=== PATIENT | male | born 1980 | race Hispanic/Latino ===

== ENCOUNTER 2018-03-18 09:37 | Emergency (ER) | payer BC ==
[2018-03-18 09:46] VITALS: TEMP 97.2
[2018-03-18 09:47] VITALS: BMI 26.6
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
[2018-03-18] MEDS ORDERED: Lidocaine 1% Inj (20ml) IJ STA (10:42)
--- NOTE | 2018-03-18 12:47 | RAD ---
PROCEDURE: Right Hand and 2nd digit radiographs. HISTORY: Laceration ; r/o foreign body COMPARISON: None. FINDINGS: BONES: Normal. No fracture. JOINTS: Normal. No osteoarthritic changes. SOFT TISSUES: Normal. OTHER FINDINGS: None. IMPRESSION: No evidence of foreign body
[2018-03-18 13:20] VITALS: BP 129/78; PULSE 78; RESP 18; O2SAT 98
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
== END 2018-03-18 13:20 | disposition home or self-care (01) ==
LOC: ED 09:37
DX: S61.210A Laceration without foreign body of right index finger without damage to nail, initial encounter (principal); W25.XXXA Contact with sharp glass, initial encounter